=== PATIENT | male | born 1995 | race Caucasian/White ===

== ENCOUNTER 2017-11-25 14:53 | Emergency (ER) | payer SELFPAY ==
[2017-11-25 15:00] VITALS: BP 139/67
--- NOTE | 2017-11-25 15:32 | ED Physician Documentation ---
General Adult - HISTORIAN Historian: patient - HPI Stated Complaint: LACERATION Chief Complaint: Laceration/Recheck/Suture Further Comments: yes (22 year old male patient presents with laceration to right upper arm; states he hit his arm on the corner of a metal electrical box. Unsure of last tetanus shot.) - ROS CONST: no problems EYES/ENT: none CVS/RESP: none GI/: none MS/SKIN/LYMPH: none NEURO/PSYCH: denies: headache, fainting, dizziness, tingling, numbness, difficulty walking, difficulty with speech, anxiety, depression, other - PAST HX Past History: none Immunizations: tetanus (given in Er today) Allergies/Adverse Reactions: Allergies Allergy/AdvReac Type Severity Reaction Status Date / Time No Known Allergies Allergy Verified 11/25/17 15:00 Home Medications: Ambulatory Orders Medication Instructions Recorded NK [NK] 11/25/17 - SOCIAL HX Smoking History: cigarettes - FAMILY HX Family History: No - VITAL SIGNS Vital Signs: Vital Signs Temp Pulse Resp BP Pulse Ox 97.3 F L 112 H 22 139/67 99 11/25/17 15:52 11/25/17 15:52 11/25/17 15:52 11/25/17 15:52 11/25/17 15:52 - REVIEWED ASSESSMENTS Nursing Assessment Reviewed: Yes Vitals Reviewed: Yes Procedures Wound Location: upper extremity Wound Length: 4.5 cm Wound's Depth, Shape: linear Wound Explored: no foreign body removed Irrigated w/ Saline (ccs): 400 Betadine Prep?: No (chlorhexidine) Anesthesia: 2% Lidocaine (with neut) Volume of Anesthetic: 10 Wound Repaired With: sutures Suture Size/Type: 4:0 Number of Sutures: 9 Layer Closure?: No Progress: Closed using sterile technique, interrupted sutures Wound edges well approximated. Patient tolerated procedure well; reviewed discharge instructions - verbalized understanding. ED Results Lab/Radiology - Orders Orders: ED Orders Category Date Time Status Cleanse with NS and Chlorhexid 1T Care 11/25/17 14:59 Active Bupivacaine HCl/Pf [Marcaine 0.5%] Med 11/25/17 15:02 Discontinued 50 mg IV .STK-MED ONE Diph,Pertuss(Acell),Tet Vac/Pf [Adacel] Med 11/25/17 14:59 Discontinued 0.5 ml IM .ONCE ONE Lidocaine 2% 20ml Vial [Xylocaine] Med 11/25/17 15:01 Discontinued 4 mg SUBCUT NOW ONE Lidocaine 2% 20ml Vial [Xylocaine] Med 11/25/17 15:02 Discontinued 400 mg .ROUTE .STK-MED ONE Sodium Bicarbonate [Neut] Med 11/25/17 15:01 Discontinued 2.4 meq INJ NOW ONE General Adult Physical Exam - PHYSICAL EXAM GENERAL APPEARANCE: mild distress EENT: eye inspection normal, ESTEFANIA RESPIRATORY: no resp distress CVS: reg rate & rhythm SKIN: warm/dry, normal color, other (right upper posterior arm with 4.5 cm laceration) EXTREMITIES: non-tender, normal range of motion, no evidence of injury, no edema , J, [employer]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 You can wash or shower after 24 hours. Do not soak the wound in water and make sure it is dry afterwards (gently pat the area dry with a clean towel). Do not get into a swimming pool, hot tub, garcia or river until your stitches are removed. To remove your dressing, gently pull it off. If needed, you can dampen it with water then gently pull it off. Clean the laceration twice a day with hibiclens and rinse with water clean away any scabbed area Apply thin coat of antibiotic ointment after cleaning the wound. Cover with non-adherent bandage if able. If you have pain, take simple pain relief medication such as Tylenol or ibuprofen. If bandages or dressings get wet, they will need to be changed. Call your doctor for any signs of symptom of infection redness, drainage, pain. Have your stitches removed at your doctors office in 7-10 days. Condition: Stable Disposition: HOME, SELF-CARE Decision to Admit: NO Decision Time: 15:31
[2017-11-25] MEDS: DIPH,PERTUSS(ACELL),TET VAC/PF 0.5 ML DISP.SYRIN IM ONE (16:07)
[2017-11-25] MEDS: SODIUM BICARBONATE 2.4 MEQ VIAL INJ ONE (16:09)
[2017-11-25] MEDS: Lidocaine 2% 20ml Vial SUBCUT ONE (16:09)
[2017-11-25] MEDS: BUPIVACAINE HCL/PF 5 MG/ML 10ML VIAL IV ONE (16:09)
[2017-11-25] MEDS: Lidocaine 2% 20ml Vial ONE (16:10)
== END 2017-11-25 15:54 | disposition home or self-care (01) ==
LOC: ED 14:53
DX: S41.111A Laceration without foreign body of right upper arm, initial encounter (principal); W26.8XXA Contact with other sharp object(s), not elsewhere classified, initial encounter; Y92.9 Unspecified place or not applicable; Y93.9 Activity, unspecified; Y99.9 Unspecified external cause status
CPT/HCPCS: 90715; J3490; 12002; 90471; 96372